=== PATIENT | female | born 1990 | race Caucasian/White ===

== ENCOUNTER 2018-09-07 14:09 | Emergency (ER) | payer OTHER ==
[~2018-09-07] VITALS: Ht 162.6 cm; Wt 59.9 kg
[2018-09-07 14:10] VITALS: BP_SYST 111
--- NOTE | 2018-09-07 15:00 | NUR ---
BROUGHT BACK TO BED #5 AND REPORT GIVEN TO KAIDEN
--- NOTE | 2018-09-07 15:15 | NUR ---
Pt c/o 01/04 headache pain and states she takes tylenol 500 mg for pain. Pt states pain began 2 days ago with nausea and vomitting. No other complaints or injuries per pt or noted.
[2018-09-07] MEDS ORDERED: NACL 0.9% 1,000 ML IV ONE (15:17)
--- NOTE | 2018-09-07 15:40 | NUR ---
ER Dr. Kim at bedside examining patient.
[2018-09-07 15:53] LABS: HEMATOCRIT 47.7 % (36-48); HEMOGLOBIN 16.3 g/dL (12.0-16.0); MEAN CORPUSCULAR VOLUME 90 fL (79.0-98.0); RED BLOOD CELL COUNT(AUTO) 5.32 MIL/uL (4.2-6.2); WHITE BLOOD COUNT (AUTO) 5.3 K/uL (4.8-10.8)
[2018-09-07 15:54] LABS: BASOPHILS % (AUTO) 0.8 % (0.0-2.0); CALCIUM 8.4 mg/dL (8.4-11.0); CREATININE 0.67 mg/dL (0.55-1.30); EOSINOPHILS # (AUTO) 0.1 K/uL (0.0-0.4); EOSINOPHILS % (AUTO) 1.5 % (0.0-4.0); LYMPHOCYTES # (AUTO) 1.4 K/uL (1.0-5.5); MEAN CORPUSCULAR HEMOGLOBIN 31 pg (27-31); MEAN CORPUSCULAR HGB CONC 34 % (32-36); MONOCYTES # (AUTO) 0.3 K/uL (0.0-1.0); MONOCYTES % (AUTO) 6.3 % (1.7-9.3); NEUTROPHILS # (AUTO) 3.4 K/uL (1.8-7.7); NEUTROPHILS % (AUTO) 64.4 % (40.0-70.0); PLATELET COUNT (AUTO) 194 K/uL (130-430); POTASSIUM 4.2 mmol/L (3.5-5.1); RED CELL DISTRIBUTION WIDTH 13.9 % (9.0-15.0)
[2018-09-07 15:58] LABS: ALBUMIN 4.1 g/dL (3.4-4.8); TOTAL BILIRUBIN 0.4 mg/dL (0.0-1.0)
[2018-09-07 16:07] LABS: BILIRUBIN,URINE NEGATIVE (NEGATIVE); BLOOD, URINE NEGATIVE (NEGATIVE); CLARITY/URINE CLEAR (CLEAR); COLOR,URINE YELLOW (YELLOW); GLUCOSE,URINE NEGATIVE (NEGATIVE); KETONES,URINE NEGATIVE (NEGATIVE); LEUKOCYTE ESTERASE ,URINE NEGATIVE (NEGATIVE); NITRITE, URINE NEGATIVE (NEGATIVE); PROTEIN URINE NEGATIVE (NEGATIVE); UROBILINOGEN,URINE 0.2 (0.2-1.0)
--- NOTE | 2018-09-07 17:00 | NUR ---
Pt off unit to radiology/ultrasound.
--- NOTE | 2018-09-07 17:28 | NUR ---
Pt return to unit. Pt tolerated well.
[2018-09-07] MEDS ORDERED: DIPHENHYDRAMINE INJ 50 MG/ML VIAL IVP ONE (17:30)
[2018-09-07] MEDS ORDERED: KETOROLAC TROMETHAMINE 30 MG VIAL IVP ONE (17:30)
[2018-09-07 18:10] VITALS: BP_SYST 103
--- NOTE | 2018-09-07 18:10 | NUR ---
Patient given written and verbal discharge instructions and verbalizes understanding. ER MD discussed with patient the results and treatment provided. Patient in stable condition. ID arm band removed. IV catheter removed intact and dressing applied, no active bleeding. Rx of norco given. Patient educated on pain management and to follow up with PMD. Pain Scale 1/10. Opportunity for questions provided and answered. Medication side effect fact sheet provided.
[2018-09-07] MEDS ORDERED: ACETAMINOPHEN 325 MG TABLET PO ONE (18:15)
== END 2018-09-07 18:10 | disposition home or self-care (01) ==
LOC: SED 14:09
DX: R51 Headache (principal); R11.2 Nausea with vomiting, unspecified; R10.30 Lower abdominal pain, unspecified; Z88.8 Allergy status to other drugs, medicaments and biological substances; Z90.49 Acquired absence of other specified parts of digestive tract
CPT/HCPCS: 36415; 70450; 74018; 76830; 76857; 80053; 81003; 83690; 85025; 96361; 96374; 96375; 99284; J1200; J1885; J7030